=== PATIENT | male | born 1985 | race Hispanic/Latino ===

== ENCOUNTER 2018-11-23 03:09 | Inpatient (IN) | payer OTHER ==
[2018-11-23 03:28] VITALS: O2SAT 98
--- NOTE | 2018-11-23 03:31 | ED PDOC ---
Arrival/HPI - General Chief Complaint: Medical Clearance Time Seen by Provider: 11/23/18 03:11 Historian: Patient - History of Present Illness Narrative History of Present Illness (Text): 11/23/18 03:26 33 m with hx heroin, cocaine, xanax abuse presents as a transfer from [facility] for inpatient psych for suicidal ideation. as per the patient he had an episode of anxiety which he internalized that led to uncontrolled thoughts. patient denies any physical complaints at this time and appears calm. Patient denies any fevers, chills, headache, dizziness, chest pain, shortness of breath, cough, diaphoresis, abdominal pain, nausea, vomiting, diarrhea, back pain, neck pain, or any other complaint. 11/23/18 03:47 Time/Duration: Prior to Arrival Symptom Onset: Gradual Symptom Course: Unchanged Activities at Onset: Light Past Medical History - Provider Review Nursing Documentation Reviewed: Yes - Infectious Disease Hx of Infectious Diseases: None - Cardiac Hx Cardiac Disorders: No - Pulmonary Hx Respiratory Disorders: No - Neurological Hx Neurological Disorder: No - HEENT Hx HEENT Disorder: No - Renal Hx Renal Disorder: No - Endocrine/Metabolic Hx Endocrine Disorders: No - Hematological/Oncological Hx Blood Disorders: No - Integumentary Hx Dermatological Disorder: No - Musculoskeletal/Rheumatological Hx Musculoskeletal Disorders: No - Gastrointestinal Hx Gastrointestinal Disorders: No - Genitourinary/Gynecological Hx Genitourinary Disorders: No - Psychiatric Hx Psychophysiologic Disorder: Yes Hx Anxiety: Yes Hx Depression: Yes Hx Substance Use: Yes - Anesthesia Hx Anesthesia: No Family/Social History - Physician Review Nursing Documentation Reviewed: Yes Family/Social History: No Known Family HX Smoking Status: Heavy Smoker > 10 Cigarettes Daily Hx Alcohol Use: Yes Hx Substance Use: Yes Allergies/Home Meds Allergies/Adverse Reactions: Allergies No Known Allergies Allergy (Verified 11/23/18 03:15) Home Medications: Home Meds Medication Instructions Recorded Confirmed QUEtiapine [Seroquel] 100 mg PO HS 11/23/18 11/23/18 Quetiapine Fumarate [Seroquel] 50 mg PO BID 11/23/18 11/23/18 Sertraline [Zoloft] 50 mg PO DAILY 11/23/18 11/23/18 Review of Systems - Physician Review All systems were reviewed & negative as marked: Yes - Review of Systems Constitutional: absent: Fevers, Night Sweats Respiratory: absent: SOB, Cough Cardiovascular: absent: Chest Pain Gastrointestinal: absent: Abdominal Pain, Diarrhea, Nausea, Vomiting Musculoskeletal: absent: Back Pain, Neck Pain Neurological: absent: Headache, Dizziness Psychiatric: Suicidal Ideation Physical Exam - Physical Exam Narrative Physical Exam (Text): 11/23/18 03:45 en: VS reviewed, alert, well developed, well nourished, nontoxic, mild distress Eye: EOMI, PERRL Neck: no JVD, supple CV: regular rate, regular rhythm, no rubs,no murmur, S1, S2 Pulm: no distress, clear to auscultation, no wheeze, no rhonchi, breath sounds equal, no rales Ext: no edema Skin: good color, no rash, no cyanosis Psych: responds appropriately to questions, normal affect Neuro: oriented x3, CN2-12 intact grossly, motor intact, sensation intact Vital Signs Reviewed: Yes Vital Signs Temp Pulse Resp BP Pulse Ox 11/23/18 03:14 97.7 F 56 L 16 118/61 98 Temperature: Afebrile Blood Pressure: Normal Pulse: Bradycardic Respiratory Rate: Normal Appearance: Positive for: Well-Appearing, Non-Toxic, Comfortable Pain Distress: None Mental Status: Positive for: Alert and Oriented X 3 Medical Decision Making ED Course and Treatment: 11/23/18 03:46 Impression: 33 year old male presents for admission to psychiatric service. Plan: -- Admission Prior Visits: Notes and results from previous visits were reviewed. Progress Notes: 11/23/18 03:49 patient accepted for admission to service of dr. meek for inpt tx of major depressive disorder - Scribe Statement The provider has reviewed the documentation as recorded by the Scribjai Restrepo All medical record entries made by the Scribe were at my direction and personally dictated by me. I have reviewed the chart and agree that the record accurately reflects my personal performance of the history, physical exam, medical decision making, and the department course for this patient. I have also personally directed, reviewed, and agree with the discharge instructions and disposition. Disposition/Present on Arrival - Present on Arrival Any Indicators Present on Arrival: No History of DVT/PE: No History of Uncontrolled Diabetes: No Urinary Catheter: No History of Decub. Ulcer: No History Surgical Site Infection Following: None - Disposition Have Diagnosis and Disposition been Completed?: Yes Diagnosis: Major depression Disposition: HOSPITALIZED Disposition Time: 03:46 Patient Plan: Admission Patient Problems: Current Active Problems Problem Status Onset Major depression Acute Condition: STABLE Forms: Bnooki (Bulgarian)
[2018-11-23] MEDS ORDERED: Alum-Mag Hydrox-Simethicone Susp (30 mL) PO PRN (04:26)
[2018-11-23] MEDS ORDERED: Magnesium Hydroxide Susp 30 ml UD PO PRN (04:26)
--- NOTE | 2018-11-23 05:31 | PCM.BM ---
<Jonh Ceeaaliyah - Last Filed: 11/23/18 05:28> Treatment Plan Problems - Problems identified on initial assessmt High risk suicide Date Initiated: 11/23/18 Time Initiated: 05:28 Assessment reference: NA Status: Active Ineffective coping Date Initiated: 11/23/18 Time Initiated: 05:29 Assessment reference: NA Status: Active Hopelessness/Helplessness Date Initiated: 11/23/18 Time Initiated: 05:29 Assessment reference: NA Status: Active Treatment assets and liabiliti Patient Assests: adapts well, cooperative, educated, cognitively intact Patient Liabilities: financial problems, poor support system, relationship conflicts, substance abuse, medical problems, legal issue - Milieu Protocol Maintain good personal hygiene: daily Encourage regular showers Conduct patient checks and document Observation sheet: Q15 minutes Maintain personal safety: every shift Educate patient to report safety concerns to staff, every shift Monitor environment for contraband/sharps Medication safety: Monitor for expected outcome, potential side effects: every shift, Assess barriers to learning: every shift, Assess readiness for medication education: every shift Family Contact Family involvement: Patient does not wish Family/SO involvement Discharge/Continuing Care - Education Needs Education Needs: Patient Medication, Patient Diagnosis/Disease Process, Patient Coping Skills, Patient Community resources - Discharge Discharge Criteria: Tolerates medication w/o severe side effects, Free of Suicidal thoughts, Normal sleep pattern, No longer exhibiting s/s of withdrawal, Reduction of target symptoms Discharge to:: Home <Ashwini Quigley - Last Filed: 11/23/18 12:03> Family Contact Family involvement: Patient does not wish Family/SO involvement - Outside Agency [facility] involvment: Information-sharing <Loni Hayes - Last Filed: 11/23/18 14:15> - Diagnosis (1) Anxiety Status: Acute Interventions: 11/23/18 14:15 Psychoeducation Psychopharmacology/adjustment of medications as needed/ monitoring possible side effects Evaluate pt on daily basis Discussion of importance of being compliant with medications and follow up appointments Suicide and homicide risk assessment and prevention, coping strategies, safety plan Reduction of symptoms Relaxation techniques and breathing exercises Improve functional status Family involvement Cognitive behavioral therapy as outpatient (2) Polysubstance abuse Status: Acute Interventions: 11/23/18 14:15 Maintaining sobriety Relapse prevention Possible rehabilitation Motivational interviewing 12-step programs: AA meetings (3) Major depression Status: Acute Interventions: 11/23/18 14:16 Psychoeducation Psychopharmacology/adjustment of medications as needed/ monitoring possible side effects Evaluate pt on daily basis Compliance with medications and follow up appointments Suicide and homicide risk assessment and prevention Relapse prevention Reduction of symptoms Improve functional status Family involvement As outpatient: cognitive behavioral therapy <Tracye Valentine - Last Filed: 11/23/18 15:57> Family Contact - Outside Agency [facility] involvment: Information-sharing [facility] (inpatient rehab) Care involvment: Information-sharing Agency contact name: [facility](inpatient rehab)
[2018-11-23 07:29] LABS: GLUCOSE,FASTING 91 mg/dL (65-110); HDL CHOLESTEROL 72 mg/dL (29-60)
[2018-11-23 07:40] LABS: LDL CHOLESTEROL 70 mg/dL (0-129)
--- NOTE | 2018-11-23 13:58 | CON ---
DATE: 11/23/2018 HISTORY OF PRESENT ILLNESS: I saw him in the psychiatric floor. He comes in with a history of cocaine abuse and Xanax abuse. He was transferred on the [facility] inpatient unit for suicidal ideation. He has internal thoughts telling him to kill himself at the time. He was doing heroine and cocaine. He is now is anxious and depressed in the psychiatric floor. He did not sleep much at the night, he is very tired at this time. He has anxiety, depression and substance abuse history. FAMILY HISTORY: Unknown family history. SOCIAL HISTORY: Smoke cigarettes, drinks alcohol, and does cocaine. ALLERGIES: NO KNOWN DRUG ALLERGIES. MEDICATIONS: He is on Seroquel and Zoloft. REVIEW OF SYSTEMS: No fevers, no night sweats. No shortness of breath or cough. No chest. No palpitations. No abdominal pain. No nausea, vomiting, constipation and diarrhea. No neck pain. No back pain. No headaches or dizziness. He is suicidal. PHYSICAL EXAMINATION: VITAL SIGNS: He has a 97.7 temp, 66 pulse, 16 respiratory rate, 118/61 blood pressure and 98% O2 sat on room air. HEENT: Head is atraumatic and normocephalic. He is well appearing, just looks tired. Extraocular muscles are intact. Throat is moist. NECK: Supple. HEART: Regular rate. LUNGS: Decreased breath sounds, but clear. ABDOMEN: Soft and nontender. Positive bowel sounds. EXTREMITIES: No edema. NEUROLOGIC: GCS is 15. Cranial nerves II through XII grossly intact. He can close his eyes tight. He has good range of motion as well as extremities. SKIN: For what I could tell is intact, talk with me today, we will talk tomorrow. He has major depression, substance abuse and suicidal ideation. We will follow medically. We will check his labs. Joni Isaacs DO MTDD
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
[2018-11-23] MEDS: Multivitamin With Minerals Tab PO SCH (15:07)
--- NOTE | 2018-11-23 22:30 | CARD ---
APPROVED REPORT Date of service: 11/23/2018 EKG Measurement Heart [id number] <Conclusion> Normal sinus rhythm Minor intraventricular conduction delay of RBBB type Borderline ECG
[2018-11-24 07:35] LABS: HEMOGLOBIN 15.6 g/dL (14.0-18.0); RBC 5.05 10^6/uL (3.5-6.1); WHITE BLOOD COUNT 4.7 10^3/uL (4.5-11.0)
[2018-11-24 07:36] LABS: MEAN CELL VOLUME 93.3 fl (80.0-105.0); MEAN CORPUSCULAR HEMOGLOBIN 30.9 pg (25.0-35.0); MEAN CORPUSCULAR HGB CONC 33.1 g/dl (31.0-37.0); RED CELL DISTRIBUTION WIDTH 13.6 % (11.5-14.5)
[2018-11-24 07:56] LABS: ALB/GLOB RATIO 1.3 (1.1-1.8); ALBUMIN 4.4 g/dL (3.0-4.8); ALT/SGPT 333 U/L (7-56); AST/SGOT 133 U/L (17-59); BLOOD UREA NITROGEN 22 mg/dL (7-21); CALCIUM 10.1 mg/dL (8.4-10.5); GFR NON-AFRICAN AMERICAN > 60
[2018-11-24] MEDS: Multivitamin With Minerals Tab PO SCH (08:50)
--- NOTE | 2018-11-24 09:59 | PCM.PYCHPN ---
Psychiatric Progress Note - Psychiatric Progress Note Patient seen today, length of contact: 25 min Problems Identified/Issues Discussed: I reviewed assessment and recent notes. Patient was interviewed at bedside. He appears a little tired but well-oriented to location, circumstances, month and year. Patient indicates that he is feeling better since admission, slept well last night and denies any new discomfort or pain. Patient is tolerating medications and doesn't report any side effects when asked. He is calm, cooperative and coherent without any evidence of perceptual disturbance or disorganization. I agree with staff notes, patient appears sad, constricted and fatigued. He has kept to himself and can appear guarded at times though this seems to be improving today. There were no behavioral issues overnight. Diagnostic Results: Rule out depressive disorder Rule out adjustment disorder with depressed and anxious mood Rule out substance-induced mood/anxiety disorder History of polysubstance abuse and dependence, in remission for the past 2 weeks and controlled setting Medication Change: No Medical Record Reviewed: Yes Mental Status Examination - Cognitive Function Orientation: Person, Place, Situation, Time Attention: WNL Concentration: Poor Association: WNL Fund of Knowledge: Poor - Mood Mood: Depressed, Anxious - Affect Affect: Constricted (sad) - Formal Thought Process Formal Thought Process: No Impairment - Suicidal Ideation Suicidal Ideation: No - Homicidal Ideation Homicidal Ideation: No Goal/Treatment Plan - Goal/Treatment Plan Progress Toward Problem(s) and Goals/Treatment Plan: * c/w current tx and plan * No new weekend lab results thus far * Vitals reviewed and noted below: Selected Entries 11/23/18 11/23/18 07:27 16:00 Temperature 97.3 F L Pulse Rate 60 86 Respiratory 20 Rate Blood Pressure 111/64 118/64
--- NOTE | 2018-11-24 16:15 | PN ---
DATE: 11/24/2018 SUBJECTIVE: I saw him sitting out of bed to chair, watching TV. He is in good spirits. He tells me he is starting to feel a little bit better. He ate his breakfast. He liked the food. He is walking well. No chest pain or shortness of breath. No abdominal pain. He has questions about his labs. He is currently on Ativan, Geodon, Maalox, milk of magnesia, Neurontin, Remeron, Seroquel, vitamins, Tylenol, and Vistaril. LABORATORY DATA: He has a 4.7 white count, 15.6 hemoglobin, 47.1 hematocrit with 339 platelets. He has 141 sodium, potassium 4.5, BUN 22, creatinine 1, GFR is greater than 60, sugar is 86, calcium is 10.1, total bili is 0.9. His AST was elevated at 133. His ALT was elevated at 333. He was drinking and doing cocaine. We will see how they come down tomorrow, now that he is not doing that for the last 24 to 36 hours. Alk phos 121, total protein 7.8, cholesterol is 185. TSH is good at 1. Nonreactive RPR. ASSESSMENT AND PLAN: As per Psychiatry, with the medications and adjustments also, we will check his elevated LFTs tomorrow, see if they are coming down; and he knows not to drink, do drugs, and to do bad things anymore. Joni Isaacs DO
[2018-11-25 07:41] LABS: HEMOGLOBIN 14.7 g/dL (14.0-18.0); MEAN CELL VOLUME 92.5 fl (80.0-105.0); MEAN CORPUSCULAR HEMOGLOBIN 31.5 pg (25.0-35.0); MEAN PLATELET VOLUME 10.2 fl (7.0-11.0); RBC 4.67 10^6/uL (3.5-6.1); RED CELL DISTRIBUTION WIDTH 13.4 % (11.5-14.5); WHITE BLOOD COUNT 3.8 10^3/uL (4.5-11.0)
[2018-11-25 08:05] LABS: ALB/GLOB RATIO 1.3 (1.1-1.8); ALBUMIN 4.1 g/dL (3.0-4.8); ALT/SGPT 259 U/L (7-56); AST/SGOT 98 U/L (17-59); BLOOD UREA NITROGEN 23 mg/dL (7-21); CALCIUM 9.6 mg/dL (8.4-10.5); GFR NON-AFRICAN AMERICAN > 60
[2018-11-25] MEDS: Multivitamin With Minerals Tab PO SCH (08:53)
--- NOTE | 2018-11-25 09:48 | PCM.PYCHPN ---
Psychiatric Progress Note - Psychiatric Progress Note Patient seen today, length of contact: 25 min Problems Identified/Issues Discussed: I reviewed recent notes and patient was interviewed at bedside. He continues to appear tired and preoccupied but well-oriented to location, circumstances, month and year. Patient indicates that he is feeling better since admission however still feels stressed and easily overwhelmed. He is trying not to dwell on his problems. Patient indicates that he slept well last night and denies any new discomfort or pain. Patient is tolerating medications and doesn't report any side effects when asked. He is calm, cooperative and coherent without any evidence of perceptual disturbance or disorganization. I agree with staff notes, patient appears sad, constricted and fatigued. He has kept to himself and can appear guarded at times though this seems to be impr oving over the weekend. Patient generally keeps a low profile on the unit. Diagnostic Results: Rule out depressive disorder Rule out adjustment disorder with depressed and anxious mood Rule out substance-induced mood/anxiety disorder History of polysubstance abuse and dependence, in remission for the past 2 weeks and controlled setting Medication Change: No Medical Record Reviewed: Yes Mental Status Examination - Cognitive Function Orientation: Person, Place, Situation, Time Attention: WNL Concentration: WNL Association: WNL Fund of Knowledge: Poor - Mood Mood: Depressed, Anxious - Affect Affect: Constricted (sad) - Speech Speech: Appropriate - Formal Thought Process Formal Thought Process: No Impairment - Suicidal Ideation Suicidal Ideation: No - Homicidal Ideation Homicidal Ideation: No Goal/Treatment Plan - Goal/Treatment Plan Progress Toward Problem(s) and Goals/Treatment Plan: * c/w current tx and plan * Vitals reviewed and noted below: Selected Entries 11/24/18 11/24/18 07:00 15:50 Temperature 98.1 F Pulse Rate 64 84 Respiratory 18 Rate Blood Pressure 122/68 129/74 * Appreciate Dr. Isaacs's f/u on 11/25/18~checking LFTS today to ensure they are coming down (they are). Labs noted below: Laboratory Results - last 24 hr 11/25/18 11/25/18 07:32 07:32 WBC 3.8 L RBC 4.67 Hgb 14.7 Hct 43.2 MCV 92.5 MCH 31.5 MCHC 34.0 RDW 13.4 Plt Count 298 MPV 10.2 Sodium 139 Potassium 4.3 Chloride 105 Carbon Dioxide 27 Anion Gap 11 BUN 23 H Creatinine 0.9 Est GFR ( Amer) > 60 Est GFR (Non-Af Amer) > 60 Random Glucose 85 Calcium 9.6 Total Bilirubin 0.4 AST 98 H D ALT 259 H Alkaline Phosphatase 110 Total Protein 7.1 Albumin 4.1 Globulin 3.0 Albumin/Globulin Ratio 1.3
--- NOTE | 2018-11-25 12:15 | PN ---
DATE: 11/25/2018 SUBJECTIVE: I saw him in the psychiatric unit, sitting out of bed to chair. He is not doing well mentally yet. He feels like he has a gun to his anxiety and depression, he feels very down. He is on Ativan, Geodon, Lidoderm patch which I added for his low back pain, magnesium, milk of magnesia, Neurontin, Nicoderm, Remeron, Seroquel, Thera-Tabs, Tylenol, Vistaril. PHYSICAL EXAMINATION: VITAL SINGS: Temperature 97.3, 67 pulse, 129/74 blood pressure, 20 respiratory rate. HEAD: Atraumatic, normocephalic. HEART: Regular rate. LUNGS: Decreased breath sounds. ABDOMEN: Soft. EXTREMITIES: No edema. PSYCHIATRY: Mentally, he is not there yet. He is having low back pain. He says he has had it for many years. I have put him on Lidoderm patch. LABORATORY DATA: White count 3.8, hemoglobin 14.7, hematocrit 42.2, platelets of 298. Sodium 139, potassium 4.3, BUN 23, creatinine 0.9, GFR is greater than 60, sugar is 85. Calcium is 9.6, total bili is 0.4. AST is down to 98. ALT is down to 59, alk phos is 110, total protein 7.1. I think as the alcohol and drugs get out of his body, the liver function test will continue to improve. As per Psychiatry, we will add Lidoderm. Continue aggressive treatment and care. Joni Isaacs DO
[2018-11-25] MEDS: Lidocaine 5% Patch TD SCH (12:38)
[2018-11-26 07:18] VITALS: RESP 20
[2018-11-26] MEDS: Lidocaine 5% Patch TD SCH (08:26)
--- NOTE | 2018-11-26 12:01 | PN ---
DATE: 11/26/2018 SUBJECTIVE: I saw Francisco in the hallway. Today is the first day he tells me, he is starting to feel a little bit better mentally. He also tells that the patch I gave him the Lidoderm patch for his neck is helping him too, and he is in better spirits. He is eating well and walking well. MEDICATIONS: He is on Ativan, Geodon, Lidoderm, Maalox, milk of magnesia, Neurontin, Nicoderm, Remeron, Seroquel, Thera-Tabs, Tylenol, and Vistaril. He is starting to improve he tells me. PHYSICAL EXAMINATION: VITAL SIGNS: He has a 97.8 temperature, 72 pulse, 109/67 blood pressure, and 20 respiratory rate. HEENT: His head is atraumatic and normocephalic. HEART: Regular rate. LUNGS: Decreased breath sounds, but clear. ABDOMEN: Soft. EXTREMITIES: No edema. LABORATORY DATA: Last labs on 11/25/2018 with 3.8 white count, 14.7 hemoglobin, 42.2 hematocrit, and 298 platelets. He has a 139 sodium, potassium 4.3, BUN 23, creatinine 0.9, GFR is greater than 60, and sugar is 85. Calcium is 9.6, AST is 98, ALT is 59 and total protein 7.1, is improving. ASSESSMENT AND PLAN: Hopefully, he will continue to improve. We will continue to watch him and follow him. The patient with multiple issues, suicidal, depression, anxiety, back pain, and high liver function tests from his drinking and doing drugs. Joni Isaacs DO
[2018-11-26] MEDS: Multivitamin With Minerals Tab PO SCH (12:50)
--- NOTE | 2018-11-26 15:41 | PCM.PYCHPN ---
Psychiatric Progress Note - Psychiatric Progress Note Patient seen today, length of contact: 30 minutes Patient Chief Complaint: "AKIKO disregarded my mental issues..." Problems Identified/Issues Discussed: Medications, symptoms, treatment plan, discharge plan. Medical Problems: 11/25/18 07:32 11/25/18 07:32 Lab Results 11/25/18 07:32: Sodium 139, Potassium 4.3, Chloride 105, Carbon Dioxide 27, Anion Gap 11, BUN 23 H, Creatinine 0.9, Est GFR ( Amer) > 60, Est GFR (Non-Af Amer) > 60, Random Glucose 85, Calcium 9.6, Total Bilirubin 0.4, AST 98 H D, ALT 259 H, Alkaline Phosphatase 110, Total Protein 7.1, Albumin 4.1, Globulin 3.0, Albumin/Globulin Ratio 1.3 11/25/18 07:32: WBC 3.8 L, RBC 4.67, Hgb 14.7, Hct 43.2, MCV 92.5, MCH 31.5, MCH C 34.0, RDW 13.4, Plt Count 298, MPV 10.2 11/24/18 06:10: Sodium 141, Potassium 4.5, Chloride 104, Carbon Dioxide 29, Anion Gap 13, BUN 22 H, Creatinine 1.0, Est GFR ( Amer) > 60, Est GFR (Non-Af Amer) > 60, Random Glucose 86, Calcium 10.1, Total Bilirubin 0.9, AST 133 H, ALT 333 H, Alkaline Phosphatase 121, Total Protein 7.8, Albumin 4.4, Globulin 3.4, Albumin/Globulin Ratio 1.3 11/24/18 06:10: WBC 4.7, RBC 5.05, Hgb 15.6, Hct 47.1, MCV 93.3, MCH 30.9, MCHC 33.1, RDW 13.6, Plt Count 339, MPV 10.0 11/23/18 07:00: RPR Nonreactive 11/23/18 07:00: TSH 3rd Generation 1.00 11/23/18 07:00: Fasting Glucose 91, Triglycerides 74, Cholesterol 185, LDL Cholesterol Direct 70, HDL Cholesterol 72 H Vital Signs Temp Pulse Resp BP Pulse Ox 11/26/18 07:16 97.8 F 72 20 109/67 11/25/18 16:22 72 99/47 L 11/25/18 07:00 18 11/25/18 06:53 97.3 F L 67 20 92/47 L 11/24/18 15:50 84 129/74 11/24/18 07:00 98.1 F 64 18 122/68 11/23/18 16:00 86 118/64 11/23/18 07:27 97.3 F L 60 20 111/64 11/23/18 03:14 97.7 F 56 L 16 118/61 98 DSM 5 Symptoms Update: Shortly, patient is 33 yo male, self-reported history of mood disorder, history of polysubstance abuse and dependence, recent admission at [facility] 2 weeks ago status post unintentional overdose on drugs, patient subsequently detoxed, was transferred to [facility], inpatient rehab in [place], [place], as per report patient was off his psychotropic medications for past 3 days, as a result patient became depressed, was not able to sleep, had suicidal ideation, patient was referred to [facility] but due to bed unavailability, patient was transferred to [facility] for further evaluation, stabilization, medication adjustment. Patient was seen today at the treatment team meeting, patient presented with much improved personal hygiene, patient appears to be circumstantial" junctional, was fixated on the fact that psychotropic medications were not resumed while patient was in inpatient rehab, over the weekend patient did not have any behavioral issues, was trying to attend groups, was compliant with her medications. Patient presented to be irritable, entitled, was fixated on Ativan which he took once, patient was trying to convince this writer producer that this medication is very beneficial for him at present moment, this writer producer educated patient that patient will be able to continue with all of his discharge, patient verbalized understanding. Patient complaint of anxiety, panic attacks, and depressed mood with transient feeling of hopelessness. Patient asked reasonable questions about his medications, patient was educated about all of the medications, risk benefits and alternatives discussed in details. So far patient tolerates medications well, no EPS, AIMS 0. Diagnostic Results: Rule out depressive disorder Rule out adjustment disorder with depressed and anxious mood Rule out substance-induced mood/anxiety disorder History of polysubstance abuse and dependence, in remission for the past 2 weeks and controlled setting Medication Change: Yes (Neurontin increased,remeron increased) Medical Record Reviewed: Yes Consults ordered or reviewed: Medical consult appreciated. Mental Status Examination - Cognitive Function Orientation: Person, Place, Situation, Time Attention: WNL Concentration: WNL Association: WNL Fund of Knowledge: Poor - Mood Mood: Depressed, Anxious - Affect Affect: Constricted (sad) - Speech Speech: Appropriate - Formal Thought Process Formal Thought Process: No Impairment - Suicidal Ideation Suicidal Ideation: No - Homicidal Ideation Homicidal Ideation: No Goal/Treatment Plan - Goal/Treatment Plan Need for Continued Stay: Remain at risks for inpatient hospitalization, Severe depression anxiety, Discharge may exacerbated symptoms, Severe functional im pairment Progress Toward Problem(s) and Goals/Treatment Plan: Milieu/structure/supportive therapy SW consultation for discharge plan and social issues Med management: Remeron 30 mg in the nighttime for depression and insomnia Neurontin 600 mg 3 times a day for mood stabilization and off label anxiety Seroquel 50 mg twice a day 200 mg in the nighttime Medical consultation for hepatitis C We will consider GI/hepatology team involved for hepatitis C EKG, NSR Family involvement Follow up on labs Will monitor closely Pt was educated about risk/benefits and alternatives of medications, coping strategies (safety plan, suicide prevention), relapse prevention, importance of follow up with psychiatrist and therapist, stay away from drugs/alcohol/smoking Estimated Date of D/C: 11/30/18
[2018-11-27] MEDS: Multivitamin With Minerals Tab PO SCH (08:32)
[2018-11-27] MEDS: Lidocaine 5% Patch TD SCH (08:33)
--- NOTE | 2018-11-27 12:17 | PN ---
DATE: 11/27/2018 SUBJECTIVE: I saw him in his room. He is telling me that underneath his nipples he has fullness and wants to be check them out, also that he has rectal issues for hemorrhoids. His Lidoderm patch is helping him with his neck pain. I will order ultrasound of his bilateral chest and give him some ProctoFoam cream. I deferred the exam at this time. PHYSICAL EXAMINATION: VITAL SIGNS: He has 98 temperature, 73 pulse, 119/70 blood pressure, 20 respiratory rate. HEENT: Head is atraumatic and normocephalic. HEART: Regular rate. LUNGS: Decreased breath sounds, but clear. ABDOMEN: Soft. EXTREMITIES: No edema. MEDICATIONS: He is on Ativan, Geodon, Lidoderm, Maalox, milk of magnesia, Neurontin, Nicoderm, ProctoFoam, , Remeron, Seroquel, Thera-Tabs, Tylenol, and Vistaril. LABORATORY DATA: He has a 3.8 white count, 14.7 hemoglobin and 298 platelets. Sodium 139, potassium 4.3, BUN 26, creatinine 0.9, GFR is greater than 60, liver enzymes are coming down, AST is 98, ALT is , total protein is 7.1. He is being seen by psychiatry. I do not there is much more we can do for him as per psychiatry. I will order the ultrasound and give rectum, I hope this will help him. Joni Isaacs DO MTDD
[2018-11-27] MEDS: Hydrocortisone-Pramoxine 1%-1% Foam(10 gm) TOP SCH ×2 (13:16→17:00)
--- NOTE | 2018-11-27 13:53 | PCM.PYCHPN ---
Psychiatric Progress Note - Psychiatric Progress Note Patient seen today, length of contact: 30 minutes Patient Chief Complaint: "my depression is better, but I feel very anxious..." Problems Identified/Issues Discussed: Medications, symptoms, treatment plan, discharge plan, safety plan, coping strategies. Medical Problems: 11/25/18 07:32 11/25/18 07:32 Lab Results 11/25/18 07:32: Sodium 139, Potassium 4.3, Chloride 105, Carbon Dioxide 27, Anio n Gap 11, BUN 23 H, Creatinine 0.9, Est GFR ( Amer) > 60, Est GFR (Non-Af Amer) > 60, Random Glucose 85, Calcium 9.6, Total Bilirubin 0.4, AST 98 H D, ALT 259 H, Alkaline Phosphatase 110, Total Protein 7.1, Albumin 4.1, Globulin 3.0, Albumin/Globulin Ratio 1.3 11/25/18 07:32: WBC 3.8 L, RBC 4.67, Hgb 14.7, Hct 43.2, MCV 92.5, MCH 31.5, MCHC 34.0, RDW 13.4, Plt Count 298, MPV 10.2 11/24/18 06:10: Sodium 141, Potassium 4.5, Chloride 104, Carbon Dioxide 29, Anion Gap 13, BUN 22 H, Creatinine 1.0, Est GFR ( Amer) > 60, Est GFR (Non-Af Amer) > 60, Random Glucose 86, Calcium 10.1, Total Bilirubin 0.9, AST 133 H, ALT 333 H, Alkaline Phosphatase 121, Total Protein 7.8, Albumin 4.4, Sakshi bulin 3.4, Albumin/Globulin Ratio 1.3 11/24/18 06:10: WBC 4.7, RBC 5.05, Hgb 15.6, Hct 47.1, MCV 93.3, MCH 30.9, MCHC 33.1, RDW 13.6, Plt Count 339, MPV 10.0 11/23/18 07:00: RPR Nonreactive 11/23/18 07:00: TSH 3rd Generation 1.00 11/23/18 07:00: Fasting Glucose 91, Triglycerides 74, Cholesterol 185, LDL Cholesterol Direct 70, HDL Cholesterol 72 H Vital Signs Temp Pulse Resp BP Pulse Ox 11/26/18 07:16 97.8 F 72 20 109/67 11/25/18 16:22 72 99/47 L 11/25/18 07:00 18 11/25/18 06:53 97.3 F L 67 20 92/47 L 11/24/18 15:50 84 129/74 11/24/18 07:00 98.1 F 64 18 122/68 11/23/18 16:00 86 118/64 11/23/18 07:27 97.3 F L 60 20 111/64 11/23/18 03:14 97.7 F 56 L 16 118/61 98 Temp Pulse Resp BP Pulse Ox 98 F 73 20 119/70 98 11/27/18 07:00 11/27/18 07:00 11/27/18 07:00 11/27/18 07:00 11/23/18 03:14 Diagnostic Results: 11/25/18 07:32 11/25/18 07:32 Lab Results 11/25/18 07:32: Sodium 139, Potassium 4.3, Chloride 105, Carbon Dioxide 27, Anion Gap 11, BUN 23 H, Creatinine 0.9, Est GFR ( Amer) > 60, Est GFR (Non-Af Amer) > 60, Random Glucose 85, Calcium 9.6, Total Bilirubin 0.4, AST 98 H D, ALT 259 H, Alkaline Phosphatase 110, Total Protein 7.1, Albumin 4.1, Globulin 3.0, Albumin/Globulin Ratio 1.3 11/25/18 07:32: WBC 3.8 L, RBC 4.67, Hgb 14.7, Hct 43.2, MCV 92.5, MCH 31.5, MCHC 34.0, RDW 13.4, Plt Count 298, MPV 10.2 11/24/18 06:10: Sodium 141, Potassium 4.5, Chloride 104, Carbon Dioxide 29, Anion Gap 13, BUN 22 H, Creatinine 1.0, Est GFR ( Amer) > 60, Est GFR (Non-Af Amer) > 60, Random Glucose 86, Calcium 10.1, Total Bilirubin 0.9, AST 133 H, ALT 333 H, Alkaline Phosphatase 121, Total Protein 7.8, Albumin 4.4, Globulin 3.4, Albumin/Globulin Ratio 1.3 11/24/18 06:10: WBC 4.7, RBC 5.05, Hgb 15.6, Hct 47.1, MCV 93.3, MCH 30.9, MCHC 33.1, RDW 13.6, Plt Count 339, MPV 10.0 11/23/18 07:00: RPR Nonreactive 11/23/18 07:00: TSH 3rd Generation 1.00 11/23/18 07:00: Fasting Glucose 91, Triglycerides 74, Cholesterol 185, LDL Cholesterol Direct 70, HDL Cholesterol 72 H Vital Signs Temp Pulse Resp BP Pulse Ox 11/27/18 07:00 98 F 73 20 119/70 11/26/18 16:00 103 H 133/75 11/26/18 07:16 97.8 F 72 20 109/67 11/25/18 16:22 72 99/47 L 11/25/18 07:00 18 11/25/18 06:53 97.3 F L 67 20 92/47 L 11/24/18 15:50 84 129/74 11/24/18 07:00 98.1 F 64 18 122/68 11/23/18 16:00 86 118/64 11/23/18 07:27 97.3 F L 60 20 111/64 11/23/18 03:14 97.7 F 56 L 16 118/61 98 DSM 5 Symptoms Update: Shortly, patient is 33 yo male, self-reported history of mood disorder, history of polysubstance abuse and dependence, recent admission at [facility] 2 weeks ago status post unintentional overdose on drugs, patient subsequently detoxed, was transferred to [facility], inpatient rehab in [place], [place], as per report patient was off his psychotropic medications for past 3 days, as a result patient became depressed, was not able to sleep, had suicidal ideation, patient was referred to [facility] but due to bed unavailability, patient was transferred to [facility] for further evaluation, stabilization, medication adjustment. as per staff pt is easily irritable, strong borderline/antisocial personality traits, but no agitation or aggression. Patient was seen today at the treatment team meeting room with and mental health worker and medical student. pt presented to be grandiose, entitled, tried to address this television script writer by her first name, redirected immediately, pt has no boundaries. Patient reported that his depression is "much better", patient reported that his anxiety "is bad, the only medication is helping his Ativan" this television script writer educated patient patient will be not able to continue the medication because this is substance control, patient also was advised that medication was ordered to discontinue. Patient tried to convince this television script writer to resume it, after strong no, pt was able to switch to other topic. pt said that he was angry yesterday and had feeling that he wants to punch the wall, but "I went to my room, did some yoga and Roberto-Chi" pt did not act out, was able to calm down. pt also has tendency of giving himself different diagnosis such as "I was manic yesterday" or "I have bipolar tendencies, can you do official evaluation?" pt was seen by medical team, pt c/o "nipple pain", also hemorrhoids, pt also was asking about his hormonal level, was asking "to check my serotoin level? why not?", pt then asked "to check my testosterone level", pt was educated that no serotonin level needs to be checked, pt was educated to discuss all medical issues with . pt was scheduled for mamogram and USG of breast. (pt is very concerned about his medical issues which led this television script writer to conclusion pt does not want to or harm self.) So far patient tolerates medications well, no EPS, AIMS 0. Diagnostic Results: Rule out depressive disorder Rule out adjustment disorder with depressed and anxious mood Rule out substance-induced mood/anxiety disorder History of polysubstance abuse and dependence, in remission for the past 2 weeks and controlled setting Medication Change: Yes (seroquel/ vistaril increased, ativan d/c) Medical Record Reviewed: Yes Consults ordered or reviewed: Medical consult appreciated. see notes for more detailed info. Mental Status Examination - Cognitive Function Orientation: Person, Place, Situation, Time Attention: WNL Concentration: WNL Association: WNL Fund of Knowledge: Poor - Mood Mood: Depressed, Anxious - Affect Affect: Constricted (sad) - Speech Speech: Appropriate - Formal Thought Process Formal Thought Process: No Impairment - Suicidal Ideation Suicidal Ideation: No - Homicidal Ideation Homicidal Ideation: No Goal/Treatment Plan - Goal/Treatment Plan Need for Continued Stay: Remain at risks for inpatient hospitalization, Severe depression anxiety, Discharge may exacerbated symptoms, Severe functional impairment Progress Toward Problem(s) and Goals/Treatment Plan: Milieu/structure/supportive therapy SW consultation for discharge plan and social issues Med management: Remeron 30 mg in the nighttime for depression and insomnia Neurontin 600 mg 3 times a day for mood stabilization and off label anxiety Seroquel 100 mg twice a day 200 mg in the nighttime Medical consultation for hepatitis C We will consider GI/hepatology team involved for hepatitis C EKG, NSR Family involvement Follow up on labs Will monitor closely Pt was educated about risk/benefits and alternatives of medications, coping strategies (safety plan, suicide prevention), relapse prevention, importance of follow up with psychiatrist and therapist, stay away from drugs/alcohol/smoking Estimated Date of D/C: 11/29/18
--- NOTE | 2018-11-27 15:46 | MAM ---
Date of service: 11/27/2018 PROCEDURE: MAMMO DIAGNOSTIC [facility] [employer] CAD AND ULTRASOUND HISTORY: Bilateral breast tenderness. TECHNIQUE: 2D digital diagnostic bilateral mammography was performed in standard and spot compression CC and standard MLO projections. CAD technology was utilized. COMPARISON: None FINDINGS: MAMMOGRAM: There is heterogeneously dense retroareolar fibroglandular parenchyma. No suspicious mass or microcalcifications. No axillary lymphadenopathy. ULTRASOUND: High-resolution ultrasound of both entire breasts was performed with real-time linear scanner. There is subareolar flame shaped fibroglandular parenchyma in both breasts. No suspicious solid mass. IMPRESSION: Moderate bilateral gynecomastia. No specific mammographic or sonographic evidence for breast malignancy. Clinical follow-up is advised and further management should be based on other clinical parameters. BIRADS 2 Benign finding Recommendation: Continue annual screening mammography, as per ACR guidelines. The [facility] has passed a law, effective December 19, 2013. Please be advised that we are required by this law to put this notification in all mammography result reports. This [place] Breast Density Law requires all patients and healthcare providers, regardless of breast density, to receive the information typed below: Your mammogram may show dense breast tissue as determined by the Breast Imaging Reporting and Data System established by the [employer]. Dense breast tissue is very common and is not abnormal. However, in some cases, dense breast tissue can make it harder to find cancer on a mammogram and may also be associated with a risk factor for breast cancer. Discuss this and other risks for breast cancer that pertain to your personal medical history. A report of your results was sent to your health care provider. You may also find more information about breast density at the website of the [employer], www.acr.org.
[2018-11-28] MEDS: Multivitamin With Minerals Tab PO SCH (08:40)
[2018-11-28] MEDS: Lidocaine 5% Patch TD SCH (08:40)
[2018-11-28] MEDS: Hydrocortisone-Pramoxine 1%-1% Foam(10 gm) TOP SCH ×3 (09:52→20:01)
--- NOTE | 2018-11-28 13:02 | PCM.PYCHPN ---
Psychiatric Progress Note - Psychiatric Progress Note Patient seen today, length of contact: 30 minutes Patient Chief Complaint: "I did not sleep that well last night, unfortunately" Problems Identified/Issues Discussed: Medications, resolved all of mammogram and ultrasonogram of both the breast, symptoms, treatment plan, discharge plan, safety plan, coping strategies, maintaining sobriety. Medical Problems: 11/25/18 07:32 11/25/18 07:32 Lab Results 11/25/18 07:32: Sodium 139, Potassium 4.3, Chloride 105, Carbon Dioxide 27, Anion Gap 11, BUN 23 H, Creatinine 0.9, Est GFR ( Amer) > 60, Est GFR (Non-Af Amer) > 60, Random Glucose 85, Calcium 9.6, Total Bilirubin 0.4, AST 98 H D, ALT 259 H, Alkaline Phosphatase 110, Total Protein 7.1, Albumin 4.1, Globulin 3.0, Albumin/Globulin Ratio 1.3 11/25/18 07:32: WBC 3.8 L, RBC 4.67, Hgb 14.7, Hct 43.2, MCV 92.5, MCH 31.5, MCHC 34.0, RDW 13.4, Plt Count 298, MPV 10.2 11/24/18 06:10: Sodium 141, Potassium 4.5, Chloride 104, Carbon Dioxide 29, Anion Gap 13, BUN 22 H, Creatinine 1.0, Est GFR ( Amer) > 60, Est GFR (Non-Af Amer) > 60, Random Glucose 86, Calcium 10.1, Total Bilirubin 0.9, AST 133 H, ALT 333 H, Alkaline Phosphatase 121, Total Protein 7.8, Albumin 4.4, Globulin 3.4, Albumin/Globulin Ratio 1.3 11/24/18 06:10: WBC 4.7, RBC 5.05, Hgb 15.6, Hct 47.1, MCV 93.3, MCH 30.9, MCHC 33.1, RDW 13.6, Plt Count 339, MPV 10.0 11/23/18 07:00: RPR Nonreactive 11/23/18 07:00: TSH 3rd Generation 1.00 11/23/18 07:00: Fasting Glucose 91, Triglycerides 74, Cholesterol 185, LDL Cholesterol Direct 70, HDL Cholesterol 72 H Vital Signs Temp Pulse Resp BP Pulse Ox 11/26/18 07:16 97.8 F 72 20 109/67 11/25/18 16:22 72 99/47 L 11/25/18 07:00 18 11/25/18 06:53 97.3 F L 67 20 92/47 L 11/24/18 15:50 84 129/74 11/24/18 07:00 98.1 F 64 18 122/68 11/23/18 16:00 86 118/64 11/23/18 07:27 97.3 F L 60 20 111/64 11/23/18 03:14 97.7 F 56 L 16 118/61 98 Temp Pulse Resp BP Pulse Ox 98 F 73 20 119/70 98 11/27/18 07:00 11/27/18 07:00 11/27/18 07:00 11/27/18 07:00 11/23/18 03:14 Diagnostic Results: 11/25/18 07:32 11/25/18 07:32 Lab Results 11/25/18 07:32: Sodium 139, Potassium 4.3, Chloride 105, Carbon Dioxide 27, Anion Gap 11, BUN 23 H, Creatinine 0.9, Est GFR ( Amer) > 60, Est GFR (Non-Af Amer) > 60, Random Glucose 85, Calcium 9.6, Total Bilirubin 0.4, AST 98 H D, ALT 259 H, Alkaline Phosphatase 110, Total Protein 7.1, Albumin 4.1, G lobulin 3.0, Albumin/Globulin Ratio 1.3 11/25/18 07:32: WBC 3.8 L, RBC 4.67, Hgb 14.7, Hct 43.2, MCV 92.5, MCH 31.5, MCHC 34.0, RDW 13.4, Plt Count 298, MPV 10.2 11/24/18 06:10: Sodium 141, Potassium 4.5, Chloride 104, Carbon Dioxide 29, Anion Gap 13, BUN 22 H, Creatinine 1.0, Est GFR ( Amer) > 60, Est GFR (Non-Af Amer) > 60, Random Glucose 86, Calcium 10.1, Total Bilirubin 0.9, AST 133 H, ALT 333 H, Alkaline Phosphatase 121, Total Protein 7.8, Albumin 4.4, Globulin 3.4, Albumin/Globulin Ratio 1.3 11/24/18 06:10: WBC 4.7, RBC 5.05, Hgb 15.6, Hct 47.1, MCV 93.3, MCH 30.9, MCHC 33.1, RDW 13.6, Plt Count 339, MPV 10.0 11/23/18 07:00: RPR Nonreactive 11/23/18 07:00: TSH 3rd Generation 1.00 11/23/18 07:00: Fasting Glucose 91, Triglycerides 74, Cholesterol 185, LDL Cholesterol Direct 70, HDL Cholesterol 72 H Vital Signs Temp Pulse Resp BP Pulse Ox 11/27/18 07:00 98 F 73 20 119/70 11/26/18 16:00 103 H 133/75 11/26/18 07:16 97.8 F 72 20 109/67 11/25/18 16:22 72 99/47 L 11/25/18 07:00 18 11/25/18 06:53 97.3 F L 67 20 92/47 L 11/24/18 15:50 84 129/74 11/24/18 07:00 98.1 F 64 18 122/68 11/23/18 16:00 86 118/64 11/23/18 07:27 97.3 F L 60 20 111/64 11/23/18 03:14 97.7 F 56 L 16 118/61 98 Patient had mammogram and ultrasonogram of both breasts. November 27, 2018: Impression: Moderate bilateral gynecomastia no evidence of breast malignancy Recommended continuing annual screening mammogram. Ultrasonogram of the breast: Moderate bilateral gynecomastia no specific or sonographic evidence for breast malignancy. Discussed with the patient11/28/18 DSM 5 Symptoms Update: Shortly, patient is 33 yo male, self-reported history of mood disorder, history of polysubstance abuse and dependence, recent admission at [facility] 2 weeks ago status post unintentional overdose on drugs, patient subsequently detoxed, was transferred to [facility], inpatient rehab in [place], [place], as per report patient was off his psychotropic medications for past 3 days, as a result patient became depressed, was not able to sleep, had suicidal ideation, patient was referred to [facility] but due to bed unavailability, patient was transferred to [facility] for further evaluation, stabilization, medication adjustment. as per staff pt is easily irritable, strong borderline/antisocial personality traits, but no agitation or aggression, overnight patient requested to have as needed medication. Patient was seen today at the treatment team meeting room with and mental health worker and medical student. Patient presented, was easily redirectable, thought process is circumstantial, tangential, but better organized. The only complaint patient is insomnia. Patient still has mood swings, as per staff patient is easily irritable, but no agitation or aggression. Patient denies hearing voices, denied seeing things, does not present to be psychotic. So far patient tolerates medications well, no EPS, AIMS 0. Diagnostic Results: Rule out depressive disorder Rule out adjustment disorder with depressed and anxious mood Rule out substance-induced mood/anxiety disorder History of polysubstance abuse and dependence, in remission for the past 2 weeks and controlled setting Medication Change: Yes (Seroquel, Vistaril, Remeron increased) Medical Record Reviewed: Yes Mental Status Examination - Cognitive Function Orientation: Person, Place, Situation, Time Attention: WNL Concentration: WNL Association: WNL Fund of Knowledge: Poor (Baseline) - Mood Mood: Depressed ("I feel better"), Anxious ("I still feel anxious") - Affect Affect: Constricted (Today was more reactive and mood congruent) - Speech Speech: Appropriate - Formal Thought Process Formal Thought Process: No Impairment - Suicidal Ideation Suicidal Ideation: No - Homicidal Ideation Homicidal Ideation: No Goal/Treatment Plan - Goal/Treatment Plan Need for Continued Stay: Remain at risks for inpatient hospitalization, Severe depression anxiety, Discharge may exacerbated symptoms, Severe functional impairment Progress Toward Problem(s) and Goals/Treatment Plan: Milieu/structure/supportive therapy consultation for discharge plan and social issues Med management: Remeron 45 mg in the nighttime for depression and insomnia Neurontin 600 mg 3 times a day for mood stabilization and off label anxiety Seroquel 200 mg twice a day 200 mg in the nighttime Vistaril 100 mg 3 times a day as needed for anxiety and insomnia Medical consultation for hepatitis C We will consider GI/hepatology team involved for hepatitis C EKG, NSR Family involvement Follow up on labs Will monitor closely Pt was educated about risk/benefits and alternatives of medications, coping strategies (safety plan, suicide prevention), relapse prevention, importance of follow up with psychiatrist and therapist, stay away from drugs/alcohol/smoking Estimated Date of D/C: 11/29/18
--- NOTE | 2018-11-28 14:24 | PN ---
DATE: 11/28/2018 SUBJECTIVE: I saw him in his room. He is having lots of questions about estrogen, progesterone, and testosterone, wants his levels checked. He right now is interested in his chest and his rectum. PHYSICAL EXAMINATION: VITAL SIGNS: He has 97.9 temperature, 73 pulse, 111/68 blood pressure, 20 respiratory rate. HEENT: Head is atraumatic, normocephalic. HEART: Regular rate. LUNGS: Decreased breath sounds. ABDOMEN: Soft. EXTREMITIES: No edema. MEDICATIONS: He is currently on Geodon, Lidoderm, Maalox, milk of magnesia, Neurontin, Nicoderm, ProctoFoam cream for the rectum , Remeron, Seroquel, Thera-Tabs, Tylenol, and Vistaril. LABORATORY DATA: He has a 3.8 white count, 14.7 hemoglobin and 298 platelets. 139 sodium, potassium 4.3, BUN 23, creatinine 0.9, GFR is greater than 60. Sugar is 85. AST is 98, ALT is 259. RPR is nonreactive. Being seen by Psychiatry. I am awaiting for some tests to come back, mammography, moderate bilateral gynecomastia. No signs of malignancy. He had a breast ultrasound, which showed also gynecomastia. No evidence of malignancy. I will see what the hormone levels are. Joni Isaacs DO
[2018-11-28 16:45] LABS: PROGESTERONE 0.218 ng/mL
[2018-11-29 07:20] VITALS: BP 104/66; PULSE 72; TEMP 97.4
[2018-11-29] MEDS: Hydrocortisone-Pramoxine 1%-1% Foam(10 gm) TOP SCH ×2 (08:00→13:58)
[2018-11-29] MEDS: Multivitamin With Minerals Tab PO SCH (08:46)
[2018-11-29] MEDS: Lidocaine 5% Patch TD SCH (08:48)
--- NOTE | 2018-11-29 11:10 | PN ---
DATE: 11/29/2018 SUBJECTIVE: I saw him in the Psychiatric floor today. He tells me he is leaving at 11:00 to a different facility, which I think is good. He is on Geodon, Lidoderm, Maalox, milk of magnesia, Neurontin, Nicoderm, Proctofoam, Remeron, Seroquel, Thera-Tabs, Tylenol, and Vistaril. He tells me he is feeling better than when he came in. PHYSICAL EXAMINATION: VITAL SIGNS: He has a 97.4 temp, 72 pulse, 104/66 blood pressure and 20 respiratory rate. HEENT: His head is atraumatic and normocephalic. HEART: Regular rate. LUNGS: Clear to auscultation. ABDOMEN: Soft. EXTREMITIES: No edema. LABORATORY DATA: He has to really get some blood test on him. He has a RPR, it is nonreactive. His progesterone is normal at 0.218. His testosterone level is 765. Estrogen level is pending and hopefully he will do very well. He came in for suicidal ideation, depression, anxiety, high liver function test, hemorrhoid and breast fullness with all the test being normal. Hopefully, he will do well in his next hospital stay. Joni Isaacs DO
--- NOTE | 2018-11-29 15:50 | PCM.PYCHDC ---
Mental Status Examination - Mental Status Examination Orientation: Person, Place, Situation, Time Memory: Intact Mood: Neutral Affect: Constricted (More reactive and mood congruent) Attention: WNL Concentration: WNL Association: WNL Fund of Knowledge: WNL Formal Thought Process: No Impairment Description of patient's judgement and insight: Improved insight into his mental illness, addiction. Patient was compliant with medications, unit rules and regulations, no aggression, no agitation. Psychotic Thoughts and Behaviors: Patient denied visual, auditory, tactile hallucinations, denied paranoid ideations, patient does not present to be psychotic. Suicidal Ideation: No Current Homicidal Ideation?: No Plan: Patient adamantly denied thoughts of harming himself or others, denied intent or plan. Discharge Summary - Discharge Note Reason for Hospitalization: Patient was admitted for evaluation of depressive symptoms possible suicidal ideation. Psychiatric History (includes Medical, Family, Personal Hx): see HPI Laboratory Data: Abnormal Lab Results 11/28/18 10:40 Progesterone 0.218 Testosterone Level 765 11/25/18 07:32 11/25/18 07:32 Lab Results 11/28/18 10:40: Progesterone 0.218, Testosterone Level 765 11/25/18 07:32: Sodium 139, Potassium 4.3, Chloride 105, Carbon Dioxide 27, Anion Gap 11, BUN 23 H, Creatinine 0.9, Est GFR ( Amer) > 60, Est GFR (Non-Af Amer) > 60, Random Glucose 85, Calcium 9.6, Total Bilirubin 0.4, AST 98 H D, ALT 259 H, Alkaline Phosphatase 110, Total Protein 7.1, Albumin 4.1, Globulin 3.0, Albumin/Globulin Ratio 1.3 11/25/18 07:32: WBC 3.8 L, RBC 4.67, Hgb 14.7, Hct 43.2, MCV 92.5, MCH 31.5, MCHC 34.0, RDW 13.4, Plt Count 298, MPV 10.2 11/24/18 06:10: Sodium 141, Potassium 4.5, Chloride 104, Carbon Dioxide 29, Anion Gap 13, BUN 22 H, Creatinine 1.0, Est GFR ( Amer) > 60, Est GFR (Non-Af Amer) > 60, Random Glucose 86, Calcium 10.1, Total Bilirubin 0.9, AST 133 H, ALT 333 H, Alkaline Phosphatase 121, Total Protein 7.8, Albumin 4.4, Globulin 3.4, Albumin/Globulin Ratio 1.3 11/24/18 06:10: WBC 4.7, RBC 5.05, Hgb 15.6, Hct 47.1, MCV 93.3, MCH 30.9, MCHC 33.1, RDW 13.6, Plt Count 339, MPV 10.0 11/23/18 07:00: RPR Nonreactive 11/23/18 07:00: TSH 3rd Generation 1.00 11/23/18 07:00: Fasting Glucose 91, Triglycerides 74, Cholesterol 185, LDL Cholesterol Direct 70, HDL Cholesterol 72 H Vital Signs Temp Pulse Resp BP Pulse Ox 11/29/18 07:19 97.4 F L 72 20 104/66 11/28/18 16:00 67 105/68 11/28/18 07:09 97.9 F 73 20 111/68 11/27/18 16:00 97 H 137/84 11/27/18 07:00 98 F 73 20 119/70 11/26/18 16:00 103 H 133/75 11/26/18 07:16 97.8 F 72 20 109/67 11/25/18 16:22 72 99/47 L 11/25/18 07:00 18 11/25/18 06:53 97.3 F L 67 20 92/47 L 11/24/18 15:50 84 129/74 11/24/18 07:00 98.1 F 64 18 122/68 11/23/18 16:00 86 118/64 11/23/18 07:27 97.3 F L 60 20 111/64 11/23/18 03:14 97.7 F 56 L 16 118/61 98 Consultations:: List each consultation separately and include: 1. Reason for request. 2. Findings. 3. Follow-up Consultations: Medical consult appreciated. see notes for more detailed info. Summary of Hospital Course include:: 1. Description of specific treatment plan utilized for patients during their course of treatmen. 2. Summarize the time- course for resolution of acute symptoms and/or regressed behaviors. 3. Describe issues identified and worked on during hospitalization. 4. Describe medication utilized. 5. Describe medical problems identified and treated. 6. Reassessment of suicide risk Summary of Hospital Course: Shortly, patient is 33 yo male, self-reported history of mood disorder, history of polysubstance abuse and dependence, recent admission at [facility] 2 weeks ago status post unintentional overdose on drugs, patient subsequently detoxed, was transferred to [facility], inpatient rehab in [place], [place], as per report patient was off his psychotropic medications for past 3 days, as a result patient became depressed, was not able to sleep, had suicidal ideation, patient was referred to [facility] but due to bed unavailability, patient was transferred to [facility] for further evaluation, stabilization, medication adjustment. Please see admission note for more detailed information. Patient was stabilized on the following medications: Neurontin 600 mg 3 times a day for mood stabilization Vistaril 100 mg 3 times a day for anxiety Remeron 45 mg at the nighttime for depression multivitamins Seroquel 200 mg twice a day for mood stabilization Patient tolerated medications well no EPS, AIMS 0. Patient was seen by medical team for his medical complaints, had ultrasound of breast, as well as mammogram, patient is aware that he needs to follow-up with his primary care physician as well as follow-up with mammogram and ultrasonogram within 1 year. Patient was provided with a printout of all of his lab work as well as testings. During this admission patient exhibit strong borderline personality/antisocial personality traits. Overall pt improved significantly, pt's affect became brighter, pt was less depressed, has realistic future oriented plans, pt also does not appear to be psychotic, or anxious, pt was socially appropriate, no behavioral issues, pts insight improved as well and soon pt deemed to be ready for discharge. At the time of the discharge patient pose no imminent danger to self or others, will be following up with psychiatrist at the rehab, information about follow up appointment, time and address provided to the pt, (see SW note for more detailed information). It is a patient responsibility to follow up with outpatient clinic, PMD as well as specialists In case patient will need to obtain results of studies pending at discharge, patient was provided with contact information of Psychiatric Inpatient unit [phone] as well as Medical Record Department [phone], as well as [facility] team [phone]. Nicotine patch was provided Naltrexone treatment is not indicated at this time Nicotine patch was offered Counseling about smoking and alcohol cessation provided pt was provided with prescriptions (see medication reconciliation form) Pt was educated about safety plan in case of worsening of symptoms or in case of suicidal or homicidal ideation call 911 or go to the nearest ER, also was educated to take meds as prescribed and stay away from drugs, pt verbalized understanding. Lab Results 11/23/18 07:00: TSH 3rd Generation 1.00 11/23/18 07:00: Fasting Glucose 91, Triglycerides 74, Cholesterol 185, LDL Cholesterol Direct 70, HDL Cholesterol 72 H Vital Signs Temp Pulse Resp BP Pulse Ox 11/23/18 07:27 97.3 F L 60 20 111/64 11/23/18 03:14 97.7 F 56 L 16 118/61 98 - Diagnosis (1) Anxiety Status: Chronic Priority: Medium (2) Polysubstance abuse Status: Chronic Priority: High (3) Major depression Status: Chronic Priority: Medium - Final Diagnosis (DSM 5) Condition upon Discharge: STABLE Disposition: REHAB FACILITY/REHAB UNIT Follow-up Treatment Plan: At the time of the discharge patient pose no imminent danger to self or others, will be following up with psychiatrist at the rehab, information about follow up appointment, time and address provided to the pt, (see SW note for more detailed information). It is a patient responsibility to follow up with outpatient clinic, PMD as well as specialists In case patient will need to obtain results of studies pending at discharge, p atient was provided with contact information of Psychiatric Inpatient unit [phone] as well as Medical Record Department [phone], as well as [facility] team [phone]. Nicotine patch was provided Naltrexone treatment is not indicated at this time Nicotine patch was offered Counseling about smoking and alcohol cessation provided pt was provided with prescriptions (see medication reconciliation form) Pt was educated about safety plan in case of worsening of symptoms or in case of suicidal or homicidal ideation call 911 or go to the nearest ER, also was educated to take meds as prescribed and stay away from drugs, pt verbalized understanding. Prescriptions/Medication Reconciliation: Gabapentin [Neurontin] 600 mg PO TID #90 tab Hydrocortisone-Pramoxine 1%-1% [Proctofoam] 1 gm TOP TID #1 aer hydrOXYzine Pamoate [Vistaril] 100 mg PO TID PRN #180 cap PRN Reason: Anxiety Mirtazapine [Remeron Soltab] 45 mg PO HS #30 odt Multimineral/Multivitamin [Therapeutic-M Tab] 1 tab PO DAILY #30 tab Nicotine 14 mg/24 hr [Nicoderm CQ] 1 patch TD DAILY #30 patch Quetiapine Fumarate [Seroquel] 200 mg PO AMHS #60 tab - Smoking Cessation Smoking Cessation Medication prescribed: Yes - Antipsychotic Medications Pt discharged on 2 or more routine antipsychotic medications: No
== END 2018-11-29 14:04 | DRG 426 ==
LOC: ED 03:09 → ERH 03:47 → PSYC 04:10
PROVIDERS: ADMIT Psychiatry & Neurology Psychiatry; ATTEND Psychiatry & Neurology Psychiatry
DX: F32.9 Major depressive disorder, single episode, unspecified (principal); B19.20 Unspecified viral hepatitis C without hepatic coma; F60.2 Antisocial personality disorder; F60.3 Borderline personality disorder; F41.0 Panic disorder [episodic paroxysmal anxiety]; N62 Hypertrophy of breast; F19.21 Other psychoactive substance dependence, in remission; F17.210 Nicotine dependence, cigarettes, uncomplicated; G47.00 Insomnia, unspecified; Z65.3 Problems related to other legal circumstances